=== PATIENT | male | born 1990 | race Caucasian/White ===

== ENCOUNTER 2018-12-16 10:34 | Observation (INO) ==
[2018-12-16] MEDS ORDERED: DILAUDID IV ONE ×2 (10:54→14:53)
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
[2018-12-16 12:34] LABS: INR 1.13; PROTIME 14.6 Seconds (11.0-16.0)
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
[2018-12-16 12:42] LABS: BASO# 0.01 X1000 (0.0-0.2); BASO% 0.1 % (0.0-0.8); EOS# 0.04 X1000 (0.0-0.7); EOS% 0.2 % (0.0-10.0); HEMATOCRIT 46.1 % (42.0-52.0); HEMOGLOBIN 15.9 g/dL (14.0-18.0); IMM GRAN# 0.08 X1000 (0.0-0.04); IMM GRAN% 0.5 % (0.0-0.5); LYMPH% 4.7 % (20.5-51.1); MCH 28.9 PG (27-31); MCHC 34.5 g/dL (33-37); MCV 83.8 FL (81-99); MONO# 0.95 X1000 (0.11-0.59); MONO% 5.6 % (1.7-9.3); NEUT# 15.02 X1000 (1.4-6.5); NEUT% 88.9 % (42.2-75.2); PLT 267 X1000 (130-400); RDW 12.9 % (11.5-14.5)
[2018-12-16 12:51] LABS: AGAP 9; ALB/GLOB RATIO 1.3; ALBUMIN 4.3 g/dL (3.5-5.0); ALKALINE PHOSPHATASE 105 U/L (32-122); BUN 11 mg/dL (8-22); CALCIUM 9.3 mg/dL (8.8-10.2); CHLORIDE 100 mmol/L (98-107); CK PROFILE 194 U/L (24-204); COSMO 273; ESTIMATED GFR > 60; GLUCOSE 98 mg/dL (70-104); GOT 33 U/L (10-34); GPT 57 U/L (10-44); POTASSIUM 4.3 mmol/L (3.5-5.1); SODIUM 137 mmol/L (136-145); TCO2 28 mmol/L (25-35); TOTAL PROTEIN 7.7 g/dL (6.3-8.3)
[2018-12-16] MEDS ORDERED: MORPHINE IV ONE (12:55)
[2018-12-16 13:38] LABS: URINE SOURCE CLEAN CATCH
[2018-12-16 13:51] LABS: BILIRUBIN URINE NEGATIVE (NEGATIVE); BLOOD URINE NEGATIVE (NEGATIVE); COLOR YELLOW; GLUCOSE URINE NEGATIVE (NEGATIVE); KETONE URINE NEGATIVE (NEGATIVE); LEUKOCYTES URINE NEGATIVE (NEGATIVE); NITRITE URINE NEGATIVE (NEGATIVE); PROTEIN URINE 30 mg/dL (NEGATIVE); TURBIDITY URINE CLEAR (CLEAR); UR EPITHELIAL CELLS <10 /HPF (<10); URINE BACTERIA NEGATIVE /HPF; URINE RBC <10 /HPF (<10); URINE WBC <10 /HPF (<10); UROBILINOGEN URINE NORMAL (NORMAL)
[2018-12-16 13:57] LABS: UR AMPHETAMINES QUAL NONE DETECTED (NONE DETECT); UR BARBITUATES QUAL NONE DETECTED (NONE DETECT); UR BENZODIAZEPIN QUAL NONE DETECTED (NONE DETECT); UR CANNABINOIDS QUAL NONE DETECTED (NONE DETECT); UR COCAINE QUAL NONE DETECTED (NONE DETECT); UR METHADONE QUAL NONE DETECTED (NONE DETECT); UR OPIATES QUAL NONE DETECTED (NONE DETECT); UR OXYCODONE QUAL NONE DETECTED (NONE DETECT); UR PCP QUAL NONE DETECTED (NONE DETECT)
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
[2018-12-16] MEDS ORDERED: ZOFRAN IV ONE (14:53)
[2018-12-16] MEDS ORDERED: REGLAN IV ONE (14:53)
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
[2018-12-16] MEDS ORDERED: ZOFRAN IV PRN (18:46)
[2018-12-16] MEDS ORDERED: DILAUDID IV PRN (18:46)
[2018-12-16] MEDS: PERCOCET-10 PO PRN (20:10)
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
[2018-12-17] MEDS: PERCOCET-10 PO PRN ×6 (00:18→23:30)
[2018-12-17 06:23] LABS: BASO# 0.02 X1000 (0.0-0.2); BASO% 0.3 % (0.0-0.8); EOS# 0.09 X1000 (0.0-0.7); EOS% 1.2 % (0.0-10.0); HEMATOCRIT 42.6 % (42.0-52.0); HEMOGLOBIN 14.3 g/dL (14.0-18.0); IMM GRAN# 0.02 X1000 (0.0-0.04); IMM GRAN% 0.3 % (0.0-0.5); LYMPH# 1.11 X1000 (1.2-3.4); LYMPH% 14.3 % (20.5-51.1); MCH 28.6 PG (27-31); MCHC 33.6 g/dL (33-37); MCV 85.2 FL (81-99); MONO# 0.77 X1000 (0.11-0.59); MONO% 9.9 % (1.7-9.3); MPV 11.2 FL (7.4-10.4); NEUT# 5.73 X1000 (1.4-6.5); PLT 219 X1000 (130-400); WBC 7.74 X1000 (4.8-10.8)
[2018-12-17 06:56] LABS: AGAP 11; BUN 11 mg/dL (8-22); CALCIUM 8.7 mg/dL (8.8-10.2); CHLORIDE 96 mmol/L (98-107); CK TOTAL 462 U/L (24-204); COSMO 266; ESTIMATED GFR > 60; GLUCOSE 103 mg/dL (70-104); SODIUM 133 mmol/L (136-145); TCO2 26 mmol/L (25-35)
[2018-12-17] MEDS: SKELAXIN PO PRN (15:15)
[2018-12-17] MEDS ORDERED: TORADOL IV ONE (17:31)
[2018-12-17] MEDS ORDERED: PRILOSEC PO ONE (17:33)
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
[2018-12-17] MEDS ORDERED: TORADOL IV PRN (21:00)
[2018-12-17] MEDS: LACTULOSE PO SCH (21:08)
[2018-12-18] MEDS: PERCOCET-10 PO PRN (06:18)
[2018-12-18 06:43] LABS: HEMATOCRIT 38.8 % (42.0-52.0); HEMOGLOBIN 13.3 g/dL (14.0-18.0); MCH 29.4 PG (27-31); MCHC 34.3 g/dL (33-37); MCV 85.7 FL (81-99); MPV 10.9 FL (7.4-10.4); RBC 4.53 XMIL (4.7-6.1); RDW 12.8 % (11.5-14.5); WBC 5.78 X1000 (4.8-10.8)
[2018-12-18] MEDS ORDERED: PRILOSEC PO SCH (07:00)
[2018-12-18 07:07] LABS: AGAP 12; BUN 12 mg/dL (8-22); CALCIUM 8.2 mg/dL (8.8-10.2); CHLORIDE 99 mmol/L (98-107); COSMO 276; ESTIMATED GFR > 60; GLUCOSE 102 mg/dL (70-104); POTASSIUM 3.8 mmol/L (3.5-5.1); SODIUM 138 mmol/L (136-145); TCO2 27 mmol/L (25-35)
[2018-12-18] MEDS: LACTULOSE PO SCH (09:23)
[2018-12-18] MEDS: SKELAXIN PO PRN (10:40)
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
[2018-12-18 11:47] VITALS: BP 128/82
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
== END 2018-12-18 12:46 | disposition home or self-care (01) ==
LOC: SUPCPDRO → 4N 10:34 → ED 10:34 → SUATTDRO 10:35
PROVIDERS: ADMIT Internal Medicine; ATTEND Internal Medicine